=== PATIENT | male | born 1995 | race Caucasian/White ===

== ENCOUNTER 2022-09-14 14:29 | Emergency (ER) | payer OTHER, BC ==
[~2022-09-14] VITALS: Ht 182.9 cm; Wt 87.9 kg
[~2022-09-14 14:29] MED LIST: ATIVAN1 MG PO; MULTI VITAMIN1 EACH PO
[2022-09-14] MEDS ORDERED: AMOX TR-K CLV1 EAC1 PO (16:09)
[2022-09-14] MEDS ORDERED: HYDROCODON-ACE1 EA10 PO (16:11)
[2022-09-14 16:26] VITALS: BP 133/87
== END 2022-09-14 16:26 | disposition home or self-care (01) ==
LOC: ED 14:29
DX: S00.33XA Contusion of nose, initial encounter (principal); S00.83XA Contusion of other part of head, initial encounter; W18.39XA Other fall on same level, initial encounter; Z23 Encounter for immunization; Z88.1 Allergy status to other antibiotic agents; Z79.899 Other long term (current) drug therapy
CPT/HCPCS: 70486; 90715

== ENCOUNTER 2023-11-16 17:28 | Emergency (ER) | payer BC, OTHER ==
[~2023-11-16] VITALS: Ht 182.9 cm; Wt 86.3 kg
[~2023-11-16 17:28] MED LIST changes: +AMOX TR-K CLV1 EAC1 PO; +HYDROCODON-ACE1 EA10 PO
[2023-11-16] MEDS ORDERED: NITROGLYCERIN 0.4 MG SUBL SL PRN (17:45)
[2023-11-16] MEDS ORDERED: ASPIRIN 81 MG CHEW PO ONE (17:45)
[2023-11-16 17:54] LABS: BASOPHILS 0.7 % (0-2); EOSINOPHILS 2.6 % (0-6); HEMATOCRIT 47.5 % (35.0-50.0); HEMOGLOBIN 16.4 g/dL (12.0-18.0); LYMPHOCYTES 31.4 % (24-44); MCHC 34.6 g/dl (30-36); MCV 92.5 fl (81-99); MONOCYTES 5.9 % (0-12); NEUTROPHILS 59.4 % (39-80); PLATELET COUNT 227 K/uL (140-440); RBC 5.14 M/ul (4.3-5.7)
[2023-11-16 18:17] LABS: ALBUMIN 3.8 g/dL (3.4-5.0); ALKALINE PHOSPHATASE 50 U/L (46-116); ALT (SGPT) 73 U/L (14-59); ANION GAP 13.5 (7-21); AST (SGOT) 35 U/L (15-37); BILIRUBIN, TOTAL 0.6 ng/dL (0.2-1.0); BUN/CREATININE RATIO 12.61 (6.0-28.6); CALCIUM 9.4 mg/dL (8.5-10.1); CARBON DIOXIDE 27 mmol/L (21-32); CHLORIDE 103 mmol/L (98-107); CREATININE, SERUM 1.11 mg/dL (0.70-1.30); GLOMERULAR FILTRATION RATE,EST 92 mL/min (>60); MAGNESIUM 1.5 mg/dL (1.8-2.4); POTASSIUM 3.5 mmol/L (3.5-5.1); PROTEIN, TOTAL 7.6 g/dL (6.4-8.2); UREA NITROGEN 14 mg/dL (7-18)
[2023-11-16] MEDS ORDERED: MAGNESIUM SULFATE 2 GM/50 ML BAG IV ONE (20:00)
[2023-11-16] MEDS ORDERED: MAGNESIUM OXID500 M1 PO (20:02)
[2023-11-16 21:10] VITALS: BP 127/82
--- NOTE | 2023-11-16 21:28 | EKG ---
[facility] [address] [facility] [place] [address] Signed Normal sinus rhythm Nonspecific T wave abnormality Abnormal ECG When compared with ECG of 01-OCT-2021 15:27, No significant change was found Confirmed by Cheyenne Feliciano MD () on 11/16/2023 9:28:12 PM Electronically Signed By: CHEYENNE FELICIANO MD [id number]/[id number] PATIENT NAME: FABBY LINDSAY Electrocardiogram DATE OF : [birth year] PHYSICIAN: CHEYENNE FELICIANO MD REPORT #: [id number] REPORT IS CONFIDENTIAL AND NOT TO BE RELEASED WITHOUT AUTHORIZATION
== END 2023-11-16 21:11 | disposition home or self-care (01) ==
LOC: ED 17:28
PROVIDERS: Emergency Medicine
DX: R07.89 Other chest pain (principal); E83.42 Hypomagnesemia; Z88.1 Allergy status to other antibiotic agents; Z79.899 Other long term (current) drug therapy
CPT/HCPCS: 36415; 71045; 80053; 83735; 84484; 85025; 93005; 93010; J3475